=== PATIENT | female | born 1995 | race Caucasian/White ===

== ENCOUNTER 2020-10-30 23:36 | Emergency (ER) | payer OTHER ==
[~2020-10-30 23:36] MED LIST: DOC-Q-LACE100 MG PO; HYDROCODON-ACE1 EAC4 PO; IBUPROFEN600 MG PO
== END 2020-10-31 04:28 | disposition home or self-care (01) ==
LOC: ER1 23:36
DX: S61.412A Laceration without foreign body of left hand, initial encounter (principal); X50.9XXA Other and unspecified overexertion or strenuous movements or postures, initial encounter
CPT/HCPCS: 73130; 90471; 90715; 99283